=== PATIENT | female | born 1965 | race Caucasian/White ===

== ENCOUNTER 2022-09-24 11:25 | Emergency (ER) | payer MEDICARE, OTHER ==
[~2022-09-24] VITALS: Ht 157.5 cm; Wt 95.1 kg
[2022-09-24] MEDS ORDERED: KETOROLAC TROMETH 60MG/2ML VIAL IM ONE (12:30)
[2022-09-24 12:37] LABS: Urine Bacteria NONE SEEN /hpf (None Seen); Urine Blood Negative /uL (Negative); Urine Clarity Clear (Clear); Urine Protein, UAD Negative (Negative); Urine Specific Gravity 1.011 (1.001-1.035); Urine Urobilinogen Normal (Negative); Urine WBC 1 /hpf (0 - 5)
[2022-09-24 12:49] LABS: Urine Color Straw (Yellow)
[2022-09-24 12:51] LABS: Basophils # (auto) 0 10 ^3/uL (0-0.2); Basophils % (auto) 1.1 % (0.0-2.0); Eosinophils # (auto) 0.1 10 ^3/uL (0-0.8); Eosinophils % (auto) 1.8 % (0.0-7.0); Hematocrit 42.4 % (36.0-46.0); Hemoglobin 14.3 g/dL (12.2-16.2); Lymphocytes # (auto) 1.1 10 ^3/uL (0.4-5.4); Lymphocytes % (auto) 31.6 % (10.0-50.0); Mean Corpuscular Hemoglobin 28.7 pg (28.0-32.0); Mean Corpuscular Hgb Conc. 33.8 g/dL (32.0-36.0); Mean Corpuscular Volume 84.9 fL (80.0-100.0); Monocytes # (auto) 0.3 10 ^3/uL (0-1.3); Monocytes % (auto) 7.5 % (0.0-12.0); Nucleated Red Blood Cells % 0.5 %; Red Blood Cells 4.99 10^6/uL (4.0-5.20); Red Cell Distribution Width 13.1 % (11.8-14.3); White Blood Cell 3.4 10^3/uL (4.4-10.8)
[2022-09-24 13:39] LABS: Albumin 3.6 g/dL (3.4-5.0); BUN/Creatinine Ratio 20.3 (10.0-20.0); Calcium 8.4 mg/dL (8.5-10.1)
[2022-09-24 13:42] LABS: Bilirubin, Total 0.3 mg/dL (0.2-1.0); Total Protein 7.2 g/dL (6.4-8.2)
[2022-09-24 14:12] VITALS: BP 169/84; PULSE 63; RESP 17; TEMP 97.7; O2SAT 96
[2022-09-24] MEDS ORDERED: NITR-87 PO (14:52)
== END 2022-09-24 15:06 | disposition home or self-care (01) ==
LOC: ER 11:25
DX: R10.12 Left upper quadrant pain (principal); N39.0 Urinary tract infection, site not specified; F12.90 Cannabis use, unspecified, uncomplicated; Z88.5 Allergy status to narcotic agent; Z87.442 Personal history of urinary calculi; Z98.890 Other specified postprocedural states
CPT/HCPCS: 36415; 74176; 80053; 81001; 83735; 85025; 96372; 99285; J1885

== ENCOUNTER 2023-12-11 10:54 | Emergency (ER) | payer OTHER, MEDICAID ==
[~2023-12-11] VITALS: Ht 157.5 cm; Wt 92.7 kg
[~2023-12-11 10:54] MED LIST: NITR-87 PO
[2023-12-11 11:47] LABS: Basophils # (auto) 0 10 ^3/uL (0-0.2); Basophils % (auto) 0.4 % (0.0-2.0); Eosinophils # (auto) 0 10 ^3/uL (0-0.8); Eosinophils % (auto) 1.8 % (0.0-7.0); Hematocrit 42.8 % (36.0-46.0); Hemoglobin 14.7 g/dL (12.2-16.2); Lymphocytes # (auto) 0.8 10 ^3/uL (0.4-5.4); Lymphocytes % (auto) 28.9 % (10.0-50.0); Mean Corpuscular Hemoglobin 30.2 pg (28.0-32.0); Mean Corpuscular Hgb Conc. 34.3 g/dL (32.0-36.0); Mean Corpuscular Volume 88.2 fL (80.0-100.0); Monocytes # (auto) 0.2 10 ^3/uL (0-1.3); Monocytes % (auto) 7.2 % (0.0-12.0); Neutrophils # (auto) 1.6 10 ^3/uL (1.6-8.6); Neutrophils % (auto) 61.7 % (37.0-80.0); Nucleated Red Blood Cells % 0.1 %; Platelet Count (auto) 382 10^3/uL (140-450); Red Blood Cells 4.85 10^6/uL (4.0-5.20); Red Cell Distribution Width 13.5 % (11.8-14.3); White Blood Cell 2.6 10^3/uL (4.4-10.8)
[2023-12-11 12:05] LABS: Chloride 105 mmol/L (98-107); Potassium 3.9 mmol/L (3.5-5.1); Sodium 141 mmol/L (136-145)
[2023-12-11 12:06] LABS: Anion Gap 6 (5-15); Carbon Dioxide 30 mmol/L (20-31)
[2023-12-11 12:07] LABS: Calcium 9.6 mg/dL (8.7-10.4)
[2023-12-11 12:11] LABS: BUN/Creatinine Ratio 13.2 (10.0-20.0); Blood Urea Nitrogen 9 mg/dL (9-23); Glucose 98 mg/dL (74-106)
[2023-12-11 12:52] VITALS: BP 185/98; PULSE 82; RESP 16; TEMP 98.5; O2SAT 98
[2023-12-11] MEDS: cloNIDine HCL 0.1 MG TAB PO ONE (13:37)
[2023-12-11] MEDS ORDERED: ACYC400T16 PO (14:06)
[2023-12-11] MEDS ORDERED: DEXA1.5T7 PO (14:12)
[2023-12-11] MEDS: DexAMETHasone 0.5MG/5ML ORAL ELIX PO ONE (14:27)
== END 2023-12-11 15:01 | disposition home or self-care (01) ==
LOC: ER 10:54
DX: G51.0 Bell's palsy (principal); R10.2 Pelvic and perineal pain; Z90.49 Acquired absence of other specified parts of digestive tract; Z90.710 Acquired absence of both cervix and uterus
CPT/HCPCS: 36415; 70450; 80048; 84702; 85025; 93005; 99284; J8540

== ENCOUNTER 2024-04-01 11:48 | Emergency (ER) | payer OTHER, MEDICAID ==
[~2024-04-01] VITALS: Ht 152.4 cm; Wt 95.3 kg
[~2024-04-01 11:48] MED LIST changes: +ACYC400T16 PO; +DEXA1.5T7 PO
--- NOTE | 2024-04-01 13:36 | DVH ---
CLINICAL INDICATION: animal bite TECHNIQUE: XY R HAND 3 VIEW XRAY Comparison: None FINDINGS/IMPRESSION: : There is no evidence of acute fracture or dislocation. Soft tissues are unremarkable.
[2024-04-01 13:50] VITALS: BP 167/86; PULSE 74; RESP 18; TEMP 97.8; O2SAT 97
[2024-04-01] MEDS ORDERED: AUG875T PO (14:52)
--- NOTE | 2024-04-01 14:52 | ED.PDOC ---
History of Present Illness(SKN HPI Comments 59 year F presents for a 2 cm laceration to the dorsal aspect of the 4th middle phalanx. Onset occurred 1 hour ago after she was bitten by her dog. Pit bull Immunization status up-to-date Denies abnormal animal behavior Denies history of immunocompromise (HIV hep B hep C) Denies fever chills night sweats Denies redness around the area Chief Complaint: Animal Bite Time Seen by MD: 13:09 Primary Care Provider: [facility] History of Present Illness: Nurses Notes, Medications, Allergies Allergies: Coded Allergies: Codeine (Verified Allergy, Unknown, 09/24/22) Home Meds Active Scripts Dexamethasone (Dexamethasone 6-Day Dose) 1.5 Mg Tab, 1.5 MG PO as directed for 6 Days, #12 TAB take one tablet three times daily for 2 days take one tablet twice daily on days3,4 take one tablet daily on days 5,6 Prov:VINEET ARNETT MD 12/11/23 Acyclovir (ZOVIRAX TABLET) 400 Mg Tb, 2 TAB PO five times a day for 10 Days, #60 TAB 0 Refills Prov:VINEET ARNETT MD 12/11/23 Nitrofurantoin Monohydrate Mac (Macrobid) 100 Mg Cap, 100 MG PO BID for 5 Days, #10 CAP Prov:ORI LEON MD 09/24/22 Mode of Arrival: Ambulatory Past Medical History PAST MEDICAL HISTORY: Kidney Stones Surgical History: Appendectomy, Cholecystectomy, Hysterectomy INSURANCE LEGAL ASSISTANT History: Denies all INSURANCE LEGAL ASSISTANT Hx Family History Family History: Reviewed,noncontributory to illness, Family hx of DM, Family hx of Cancer, Family hx of HTN Social History Smoker: Non-Smoker Alcohol: Occasionally Drugs: Marijuana Lives In: Home All Other Systems: Reviewed and Negative (per hpi) Physical Exam General Appearance: No Apparent Distress, Normal HEENT: Normal ENT Inspection, Pharynx Normal, TMs Normal Neck: Full Range of Motion, Non-Tender, Normal, Normal Inspection Respiratory: Chest Non-Tender, Lungs Clear, No Accessory Muscle Use, No Respiratory Distress, Normal Breath Sounds Cardiovascular: No Edema, No JVD, No Murmur, No Gallop, Normal Peripheral Pulses, Regular Rate/Rhythm Breast Exam: Deferred Gastrointestinal: No Organomegaly, Non Tender, No Pulsatile Mass, Normal Bowel Sounds, Soft Genitalia: Deferred Pelvic: Deferred Rectal: Deferred Extremities: No calf tenderness, Normal capillary refill, Normal inspection, Normal range of motion, Non-tender, No pedal edema Musculoskeletal : Location: Right Extremity Location: Other (ring finger: 2 cm lac. hemostasis. no ttp. no tendon injury. fds/fdp intact) Apperance: Normal Neurologic: Alert, microarray specialist II-XII nml as Tested, No Motor Deficits, Normal Affect, Normal Mood, No Sensory Deficits Cerebellar Function: Normal Reflexes: Normal Skin: Dry, Normal Color, Warm Lymphatic: No Adenopathy Was a procedure done? Was a procedure done?: Yes Sedation Sedation?: No Laceration Repair : Location 4th finger Length 2 Anesthetic: Lidocaine, Bupivacaine Laceration Repair Prep: Saline, Betadine Laceration Repair Wound Comple: epidermis/dermis repair Laceration Repair: Size (5-0), Simple, Bacitracin, Non-adherent gauze, Gauze Informed consent obtained: Yes Risks, benefits, and alternati: Yes Differential Diagnosis (INTG) Differential Diagnosis: Laceration X-Ray, Labs, Meds, VS Vital Signs Date Time Temp Pulse Resp B/P (MAP) Pulse Ox O2 Delivery O2 Flow Rate FiO2 04/01/24 13:50 74 18 97 Room Air 04/01/24 13:50 97.8 74 18 167/86 (113) 97 97.8 04/01/24 12:04 97.8 74 18 167/86 (113) 97 X-Ray, Labs, Meds, VS Comment The skin edges of the laceration were infiltrated with 1% lidocaine The skin surrounding the laceration was scrubbed with Betadine soaked sterile gauze The laceration was irrigated under high-pressure with a 60 mL syringe A total of 1L sterile water was used. Including diluted Betadine solution The laceration was prepped in sterile fashion with sterile drapes On examination under direct light, there was no foreign body seen The laceration was repaired in simple interrupted technique There was no continuing bleeding on repair. There were no complications related to repair Antibiotics rx * Tetanus updated Education and follow-up instructions provided Wound check in 2 days Return sooner for signs of infection such as fevers, increased pain, redness, green, yellow discharge, or any concerns Keep wound dry for 24 to 48 hours; dry dressing may be changed Protect from sunlight and keep area clean and dry. Use soap and water if it gets dirty High risk of possible scarring and education provided on ways to minimize scarring after wound heals Also provided education on possible complications post procedure including wound dehiscence, infection, etc. Time of 1ST Reevaluation: 14:48 Reevaluation 1ST: Improved Patient Education/Counseling: Diagnosis, Treatment Family Education/Counseling: Diagnosis, Treatment Departure 1 Departure Time of Disposition: 14:50 Impression: Primary Impression: Laceration of finger Qualified Codes: S61.214A - Laceration without foreign body of right ring finger without damage to nail, initial encounter Additional Impression: Dog bite Qualified Codes: W54.0XXA - Bitten by dog, initial encounter Disposition: HOME / SELF CARE / HOMELESS Condition: Stable e-Prescriptions Amoxicillin & Pot Clavulanate (AUGMENTIN TABLET) 875 Mg Tb 875 MG PO BID for 7 Days, #14 TAB 0 Refills Prov: MABLE ABARCA NP 04/01/24 Critical Care Note Critical Care Time?: No Stability Stability form required: No Heart Score Heart Score: Heart Score Response (Comments) Value History N/A 0 EKG N/A 0 Age N/A 0 Risk Factors N/A 0 Troponin N/A 0 Total 0 MABLE ABARCA GRAVE DIGGER Apr 01, 2024 14:52
[2024-04-01] MEDS: NEOMYCIN-BACITRACIN-POLYM UNITDOSE PKG TOP OINT TOP ONE (15:07)
[2024-04-01] MEDS: cefTRIAXone SOD 1,000 MG VL IM ONE (15:08)
[2024-04-01] MEDS: TETANUS-DIPTH-ACEL PERTUSSIS 0.5ML SYR Tdap IM ONE (15:08)
[2024-04-01] MEDS ORDERED: ACET500T58 PO (15:08)
[2024-04-01] MEDS ORDERED: IBUP-1454 PO (15:08)
== END 2024-04-01 15:21 | disposition home or self-care (01) ==
LOC: ER 11:51
DX: S61.214A Laceration without foreign body of right ring finger without damage to nail, initial encounter (principal); Z86.16 Personal history of COVID-19; Z90.710 Acquired absence of both cervix and uterus; Z90.49 Acquired absence of other specified parts of digestive tract; Z88.5 Allergy status to narcotic agent; W54.0XXA Bitten by dog, initial encounter; Y93.89 Activity, other specified; Y92.89 Other specified places as the place of occurrence of the external cause; Y99.8 Other external cause status
CPT/HCPCS: 12001; 73130; 90471; 90715; 96372; 99283; J0696

== ENCOUNTER 2024-12-18 17:16 | Emergency (ER) | payer OTHER, MEDICAID ==
[~2024-12-18] VITALS: Ht 157.5 cm; Wt 89.9 kg
[~2024-12-18 17:16] MED LIST changes: +ACET500T58 PO; +AUG875T PO; +IBUP-1454 PO
[2024-12-18 18:02] LABS: Hematocrit 41.7 % (36.0-46.0); Hemoglobin 14.3 g/dL (12.2-16.2); Mean Corpuscular Hemoglobin 29.3 pg (28.0-32.0); Mean Corpuscular Volume 85.3 fL (80.0-100.0); Nucleated Red Blood Cells % 0.2 %
[2024-12-18 18:06] LABS: Chloride 103 mmol/L (98-107); Potassium 3.8 mmol/L (3.5-5.1); Sodium 142 mmol/L (136-145)
[2024-12-18 18:07] LABS: Anion Gap 9 (5-15); Carbon Dioxide 30 mmol/L (20-31)
--- NOTE | 2024-12-18 18:08 | ED.PDOC ---
History of Present Illness HPI Comments Ms. 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 She reports sudden onset of burning epigastric pain, non- radiating, 7/10 intensity, that was followed by onset of pressure like retrosternal chest pain, that radiates toward her neck, 9/10 intensity, associated with nausea and shortness of breath, mildly alleviated by taking 2 low dose aspirins. During this episode, the patient checked her showing a reading of 184/70 mmHg. She denies diaphoresis, fever, back pain, left arm pain, vomiting, palpitations, and loss of consciousness. Additionally she refers that since Saturday she has had symptoms of an upper respiratory infection including nasal congestion, cough, decreased appetite, and malaise, for which she has been taking Sudafed and NyQuil. Due previous history of NE, the patient sought care in the ER. On initial evaluation, the patient seems well, afebrile, hypertensive with BP reading of 155/106 mmHg, other vitals are stable, she is able to ambulate without difficulty, without other overt signs of distress. Chief Complaint: Chest Pain Time Seen by MD: 17:30 Primary Care Provider: EMRE PENDLETON ELROD Allergies: Coded Allergies: Codeine (Verified Allergy, Unknown, 09/24/22) Home Meds Active Scripts Acetaminophen (Acetaminophen) 500 Mg Tab, 500 MG PO TIDPRN PRN for 10 Days, #30 TAB 0 Refills Prov:MABLE ABARCA NP 04/01/24 Ibuprofen (Ibuprofen) 600 Mg Tab, 1 TAB PO TID for 10 Days, #30 TAB 0 Refills Prov:MABLE ABARCA NP 04/01/24 Amoxicillin & Pot Clavulanate (AUGMENTIN TABLET) 875 Mg Tb, 875 MG PO BID for 7 Days, #14 TAB 0 Refills Prov:MABLE ABARCA NP 04/01/24 Dexamethasone (Dexamethasone 6-Day Dose) 1.5 Mg Tab, 1.5 MG PO as directed for 6 Days, #12 TAB take one tablet three times daily for 2 days take one tablet twice daily on days3,4 take one tablet daily on days 5,6 Prov:VINEET ARNETT MD 12/11/23 Acyclovir (ZOVIRAX TABLET) 400 Mg Tb, 2 TAB PO five times a day for 10 Days, #60 TAB 0 Refills Prov:VINEET ARNETT MD 12/11/23 Nitrofurantoin Monohydrate Mac (Macrobid) 100 Mg Cap, 100 MG PO BID for 5 Days, #10 CAP Prov:ORI LEON MD 09/24/22 Information Source: Patient Mode of Arrival: Ambulatory Severity: None Timing: Minutes Duration: Since onset Past Medical History PAST MEDICAL HISTORY: Kidney Stones Surgical History: Appendectomy, Cholecystectomy, Hysterectomy Surgical History (Other): Varicose vein surgy, Brain surgery for vein repair, bilateral rotator cuff repair FILTER CHANGER History: Denies all FILTER CHANGER Hx Family History Family History: Reviewed,noncontributory to illness, Family hx of DM, Family hx of Cancer, Family hx of HTN Social History Smoker: Non-Smoker Alcohol: Occasionally Drugs: Denies Drug Use Lives In: Home Constitutional: reports: others; denies: chills, diaphoresis, fatigue, fever, malaise, sweats, weakness EENTM: denies: blurred vision, double vision, ear ringing, nasal discharge, nose congestion, nose pain, photophobia, throat pain Respiratory: reports: shortness of breath; denies: cough, hemoptysis, orthopnea Cardiovascular: reports: chest pain; denies: dizzy spells, diaphoresis, Dyspnea on exertion, edema, irregular heart beat, left arm pain, lightheadedness, palpitations Gastrointestinal: reports: abdominal pain, nausea; denies: abdomen distended, constipated, diarrhea, dysphagia, difficulty swallowing, hematemesis, melena, poor appetite, poor fluid intake, rectal bleeding, vomiting Genitourinary: denies: burning, dysuria, flank pain, frequency, hematuria, incontinence, pain, urgency Neurological: denies: dizziness, fainting, headache, numbness, paresthesia, pre-existing deficit, seizure, tingling, tremors, weakness Musculoskeletal: denies: back pain, joint pain, joint swelling, muscle pain, muscle stiffness, neck pain Integumetry: denies: bruises, laceration, lesions, lumps, rash, wounds Physical Exam General Appearance: Normal, Obese HEENT: Normal ENT Inspection, PERRL/EOMI, Pharynx Normal Neck: Full Range of Motion, Non-Tender, Normal Inspection Respiratory: Chest Non-Tender, Lungs Clear, No Accessory Muscle Use, No Respiratory Distress, Normal Breath Sounds Cardiovascular: No Edema, No JVD, No Murmur, Normal Peripheral Pulses, Regular Rate/Rhythm Breast Exam: Deferred Gastrointestinal: Non Tender, Normal Bowel Sounds, Soft Genitalia: Deferred Pelvic: Deferred Rectal: Deferred Extremities: Normal capillary refill, Normal inspection, Normal range of motion, Non-tender, No pedal edema Neurologic: Alert, Normal Affect, Normal Mood Cerebellar Function: Normal Reflexes: NOT DONE Skin: Normal Color Peripheral Pulses: 3+ dorsalis pedis (R), 3+ dorsalis pedis (L) Lymphatic: Other (No cervical lymphadenopathy ) Was a procedure done? Was a procedure done?: No EKG EKG : Pulse Rate (adult): 92 [place]: Normal Cardiac Rhythm: NSR Block: None Hypertrophy: None ST: Normal Differential Dx Considerations may include: Esophagitis, Esophageal spasm, GERD, Acute gastritis, ACS, NE, pericarditis X-Ray, Labs, Meds, VS Vital Signs Date Time Temp Pulse Resp B/P (MAP) Pulse Ox O2 Delivery O2 Flow Rate FiO2 12/18/24 18:56 92 12/18/24 18:16 75 12/18/24 17:31 97.5 88 20 155/106 98 97.5 12/18/24 17:26 92 Lab Test 12/18/24 19:39 12/18/24 18:25 12/18/24 17:22 Range/Units Urine Color Pending Urine Clarity Pending Urine pH Pending Urine Specific [place] Pending Urine Protein Pending Urine Ketones Pending Urine Blood Pending Urine Nitrite Pending Urine Bilirubin Pending Urine Urobilinogen Pending Urine Leukocyte Esterase Pending Urine RBC Pending Urine Microscopic WBC Pending Urine Squamous Epithelial Cells Pending Urine Bacteria Pending Urine Glucose Pending Troponin I High Sensitivity < 3 L < 3 L </=34 ng/L White Blood Count 3.4 L 4.4-10.8 10^3/uL Red Blood Count 4.89 4.0-5.20 10^6/uL Hemoglobin 14.3 12.2-16.2 g/dL Hematocrit 41.7 36.0-46.0 % Mean Corpuscular Volume 85.3 80.0-100.0 fL Mean Corpuscular Hemoglobin 29.3 28.0-32.0 pg Mean Corpuscular Hemoglobin Concent 34.3 32.0-36.0 g/dL Red Cell Distribution Width 13.2 11.8-14.3 % Platelet Count 285 140-450 10^3/uL Mean Platelet Volume 6.8 L 6.9-10.8 fL Neutrophils (%) (Auto) 56.4 37.0-80.0 % Lymphocytes (%) (Auto) 27.2 10.0-50.0 % Monocytes (%) (Auto) 12.7 H 0.0-12.0 % Eosinophils (%) (Auto) 3.2 0.0-7.0 % Basophils (%) (Auto) 0.5 0.0-2.0 % Neutrophils # (Auto) 1.9 1.6-8.6 10 ^3/uL Lymphocytes # (Auto) 0.9 0.4-5.4 10 ^3/uL Monocytes # (Auto) 0.4 0-1.3 10 ^3/uL Eosinophils # (Auto) 0.1 0-0.8 10 ^3/uL Basophils # (Auto) 0 0-0.2 10 ^3/uL Nucleated Red Blood Cells 0.2 % Sodium Level 142 136-145 mmol/L Potassium Level 3.8 3.5-5.1 mmol/L Chloride Level 103 98-107 mmol/L Carbon Dioxide Level 30 20-31 mmol/L Anion Gap 9 5-15 Blood Urea Nitrogen 9 9-23 mg/dL Creatinine 0.72 0.550-1.02 mg/dL Glomerular Filtration Rate Calc 95 >90 mL/min BUN/Creatinine Ratio 12.5 10.0-20.0 Serum Glucose 100 74-106 mg/dL Calcium Level 8.7 8.7-10.4 mg/dL Time of 1ST Reevaluation: 19:10 Reevaluation 1ST: Improved Patient Education/Counseling: Diagnosis, Treatment Family Education/Counseling: No Family Present Comments The patient presented today for chest pain On initial evaluation, she seems well, AOx4, afebrile, hypertensive with BP of 155/106 mmHg, other vitals are stable, ambulating without difficulty, without overt signs of distress Physical exam with no positive findings EKG is shows normal sinus rhythm CBC shows mild leukopenia, which may be concordant with current respiratory infection, BMP is within normal range, Troponins are negative Chest xray shows no acute cardiopulmonary process UA is without significant finding Based on the data, it is unlikely that the patient is presenting with an NE, ACS, pericarditis, or gastroenteritis. There is suspicion of esophageal spasm. She was given GI cocktail of Reglan 10 mg PO, Maalox 30 mL PO, and Lidocaine viscous 10 mL PO. The patient is considered stable for discharge home. SEPSIS Sepsis Screen Date sepsis recognized/suspect: Dec 18, 2024 Time Sepsis recognized/suspect: 1716 Recent Procedure: No On Antibiotic Therapy: No Respiratory Rate >20: No Heart Rate >90: No Temp<36 C (96.8 F) or >38.3 C: No SBP <90 or MAP <65 mmHG: No New Acute Mental Status Change: No Is the patient on CPAP, BIPAP,: No Physician Orders Urinalysis (12/18/24 17:23) Chest Portable (12/18/24 17:27) Electrocardigram (12/18/24 17:27) Electrocardigram (12/18/24 18:27) Electrocardigram (12/18/24 20:27) Metoclopramide Tablet (Reglan Tablet) (12/18/24 19:45) Vital Signs Date Time Temp Pulse Resp B/P (MAP) Pulse Ox O2 Delivery O2 Flow Rate FiO2 12/18/24 18:56 92 12/18/24 18:16 75 12/18/24 17:31 97.5 88 20 155/106 98 97.5 12/18/24 17:26 92 Laboratory Tests Test 12/18/24 17:22 White Blood Count 3.4 10^3/uL (4.4-10.8) L Departure 1 Departure Time of Disposition: 19:50 Impression: Primary Impression: Chest pain Additional Impression: Esophageal spasm Disposition: HOME / SELF CARE / HOMELESS Condition: Stable Additional Instructions: You presented today for chest pain On initial evaluation, you seem well, oriented, afebrile, hypertensive with BP of 155/106 mmHg, other vitals are stable, ambulating without difficulty, without overt signs of distress Physical exam with no positive findings Your work up including a CBC, BMP, troponins, EKG, chest xray, and urine analysis are benign Based on the data, it is very unlikely your pain is associated a cardiac cause. May be associated to many things such as esophageal spasm and gastritis. You were given a GI cocktail of reglan, maalox, and lidocaine viscous On reevaluation, your vitals were stable You are considered stable for discharge home. We recommend you follow with your PCP within 1-3 days. Discharged With: Self Critical Care Note Critical Care Time?: No Stability Stability form required: No Heart Score Heart Score: Heart Score Response (Comments) Value History Slightly Suspicious 0 EKG Normal 0 Age 45-64 1 Risk Factors 1 or 2 risk factors 1 Troponin Normal limit 0 Total 2 CASSIUS FRIAS RESIDENT Dec 18, 2024 18:08
[2024-12-18 18:12] LABS: BUN/Creatinine Ratio 12.5 (10.0-20.0); Blood Urea Nitrogen 9 mg/dL (9-23); Glucose 100 mg/dL (74-106)
[2024-12-18 18:27] LABS: Calcium 8.7 mg/dL (8.7-10.4)
--- NOTE | 2024-12-18 19:08 | DVH ---
EXAM: XY CHEST PORTABLE CLINICAL HISTORY: CP TECHNIQUE: Single PA view of the chest WID: COMPARISON: None FINDINGS: Lines and tubes: Cholecystectomy clips are seen. Chest: The heart size and pulmonary vasculature is within normal limits. No pleural effusion, pneumothorax, or consolidation. The osseous structures are grossly intact. Multilevel thoracic spondylosis. IMPRESSION: 1. No acute cardiopulmonary abnormality.
[2024-12-18 20:07] LABS: Urine Protein, UAD Negative (Negative)
[2024-12-18] MEDS: METOCLOPRAMIDE HCL 10 MG TAB PO ONE ×2 (20:23→21:44)
[2024-12-18 21:44] VITALS: BP 148/92; PULSE 70; RESP 18; TEMP 98.2; O2SAT 98
[2024-12-18] MEDS: MAALOX PLUS or MAALOX 30 ML PO ONE (21:44)
[2024-12-18] MEDS: LIDOCAINE VISCOUS 2% 15ML UD PO ONE (21:44)
--- NOTE | 2024-12-19 06:36 | ECG ---
[facility] Test Date: 2024-12-18 Test Time: 20:28:16 Pat Name: ABELARDO EMERSON Department: Room: Gender: F Breastfeeding Peer Counselor: : 1965 Requested By: QIAN HA Order Number: [id number] Reading MD: Darwin Tee Measurements Intervals [place] Rate: 63 P: 46 IN: 150 QRS: 37 QRSD: 89 T: 16 QT: 441 QTc: 452 Interpretive Statements Sinus rhythm Electronically Signed On 12-21-2024 10:56:49 PST by Darwin Tee Please click the below link to view image of tracing.
--- NOTE | 2024-12-19 07:06 | ECG ---
[facility] Test Date: 2024-12-18 Test Time: 18:13:36 Pat Name: ABELARDO EMERSON Department: Room: Gender: F [facility] Attendant: TREVER : 1965 Requested By: QIAN HA Order Number: [id number] Reading MD: Darwin Tee Measurements Intervals [place] Rate: 75 P: 49 [place]: 149 QRS: 33 QRSD: 91 T: 18 QT: 391 QTc: 437 Interpretive Statements Sinus rhythm Electronically Signed On 12-21-2024 10:56:33 PST by Darwin Tee Please click the below link to view image of tracing.
== END 2024-12-18 21:44 | disposition home or self-care (01) ==
LOC: ER 17:16
DX: K22.4 Dyskinesia of esophagus (principal); R07.89 Other chest pain; Z87.442 Personal history of urinary calculi; Z90.49 Acquired absence of other specified parts of digestive tract; Z90.710 Acquired absence of both cervix and uterus; Z88.5 Allergy status to narcotic agent
CPT/HCPCS: 36415; 71045; 80048; 81001; 84484; 85025; 93005